=== PATIENT | male | born 1935 | race Caucasian/White ===

== ENCOUNTER → 2017-12-26 | Day surgery (SDC) | payer OTHER ==
[~2017-12-26] MED LIST: ATORVASTATIN CA80 M1 PO; LUMIGAN2.5 ML OU; METFORMIN HCL750 M1 PO; VITAMIN B-121000 MC3 PO
--- NOTE | 2017-12-26 11:29 | Operative Report ---
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 A lid speculum was placed to retract the lids. The case was begun by making 2 partial-thickness corneal relaxing incisions at 95. A temporal incision with a 2.4 mm keratome. The eye was stabilized with a Macedo ring during this incision. 1 mL of non-preserved lidocaine was introduced into the anterior chamber to provide anesthesia. The anterior chamber was then filled and deepened with viscoelastic. Pupil size was insufficient to make a capsulorrhexis and so a Malyugin 2.0 ring placed into the anterior chamber to expand the pupil. A curvilinear capsulorrhexis was achieved using a 30-gauge needle and is a cystotome and capsulorrhexis was finished using a Utrata forceps. Due to the lens color being brown it was very difficult to see the edges of this rhexis especially inferiorly. A second paracentesis incision was made temporally with a 1 mm MVR blade. The lens was then hydrodissected with balanced salt solution and found to be rotatable. The lens was emulsified using phacoemulsification and a modified four-quadrant cracking technique. The first 3 quadrants came out without incident however the last quadrant seem to be too far peripherally inferiorly in the area of the suspicious capsule. The phaco unit was removed from the eye and viscoelastic was used to try to dissect underneath the lens quadrant and bring it into the center of the eye to be emulsified. This was only partially successful initially however with some persistence this was done and the phaco unit was then re-introduced into the anterior chamber dry so as not to upset the lens position. However when the irrigation was turned on the lens quadrant prolapsed backward. An attempt to grasp it was made with the phaco unit however this was unsuccessful and the quadrant prolapsed into the back of the eye. Emulsification was ceased and the vitrectomy unit was set up. A limited anterior medical mechanical vitrectomy was then done to clear the anterior chamber and anterior vitreal space of vitreous. The main wound was checked and found to be free of vitreous. The anterior lens capsule was inspected and found to be mostly intact and so decision was made to implant a 3 piece MA 60AC lens. An 18.5 diopter version of this lens was then folded externally and inserted through an enlarged incision. It was carefully positioned so that the haptics were left at 3 and 9:00. Viscoelastic was then removed from the eye by vitrectomy after the Malyugin ring was removed using its washtub worker. The eye was pressurized to a normal tone after the main incision was sutured with 2 10-0 nylon interrupted sutures and the paracentesis site with a single 10-0 nylon interrupted suture. A 1/10 of a cc of cefuroxime solution was introduced into the anterior chamber to provide antibiotic prophylaxis. A similar amount of Miostat was introduced in an effort to control the perioperative pressure. The wounds were checked and found not to be leaking. The lid speculum was removed from the orbit. Antibiotic and steroid drops were placed on the eye and then the eye was shielded. Monitoring equipment was removed from the patient and the patient was removed from the operative suite to the holding area. The patient tolerated the procedure well and will be seen in the office tomorrow.
== END ==
LOC: STS 00:31
DX: H25.9 Unspecified age-related cataract (principal); H43.01 Vitreous prolapse, right eye; E11.9 Type 2 diabetes mellitus without complications; Z79.84 Long term (current) use of oral hypoglycemic drugs
CPT/HCPCS: J2250; V2632